=== PATIENT | male | born 2000 | race Caucasian/White ===

== ENCOUNTER 2022-06-09 22:43 | Inpatient (IN) | payer MEDICAID, OTHER ==
[~2022-06-09] VITALS: Ht 170.2 cm; Wt 86.3 kg
[2022-06-09] MEDS ORDERED: NALOXONE HCL 1 MG/ML 2ML VIAL ONE (22:49)
[2022-06-09] MEDS ORDERED: ONDANSETRON HCL 4MG/2ML INJ IV ONE (23:00)
[2022-06-09] MEDS ORDERED: NALOXONE HCL 1 MG/ML 2ML VIAL IV ONE ×2 (23:00)
[2022-06-09] MEDS ORDERED: SODIUM CHLORIDE 0.9% 1000ML BAG (SEPSIS BOLUS) IV ONE (23:00)
[2022-06-09] MEDS ORDERED: LEVETIRACETAM 500MG PREMIX 100 ML IV ONE (23:15)
[2022-06-09 23:17] LABS: BG BASE EXCESS -15.8 mmol/L (-2.0-2.0); BG CARBOXYHEMOGLOBIN 0.2 % (0.5-1.5); BG DEOXYHEMOGLOBIN 0.4 % (0.0-5.0); BG FRACTION INSPIRED OXYGEN 100; BG HCO3 ACT 12.9 mmol/L (22.0-26.0); BG METHEMOGLOBIN 0.3 % (0.0-1.5); BG OXYGEN SATURATION 99.6 % (92.0-98.5); BG OXYHEMOGLOBIN 99.1 % (94.0-97.0); BG PH 7.125 (7.350-7.450); BG PO2 361.6 mmHg (75.0-100.0); BG SAMPLE SITE RIGHT RADIAL; BG TOTAL HEMOGLOBIN 15.4 g/dL (12.0-18.0); BG VENT MODE MASK - NRB
[2022-06-09 23:25] LABS: CHLORIDE 95 mEq/L (98-107)
[2022-06-09 23:37] LABS: BETA HYDROXYBUTYRATE 0.2 mMol/L (0.0-0.3); ETHANOL BLOOD < 10 mg/dL
[2022-06-09 23:40] LABS: BASOPHILS % 0.4 % (0.0-2.0); EOSINOPHILS % 0.6 % (0.0-5.0); LYMPHOCYTES % 40.8 % (20.0-50.0); MEAN CORPUSCULAR HEMOGLOBIN 30.9 pg (28.0-32.0); MEAN CORPUSCULAR VOLUME 97.2 fL (80.0-94.0); MEAN PLATELET VOLUME 8.3 fl (7.4-10.4); MONOCYTES % 4.5 % (2.0-8.0); NEUTROPHILS % 53.7 % (40.0-76.0); PLATELET 237 x1000/uL (130-400); RED BLOOD CELL COUNT 4.53 mill/uL (4.7-6.1); RED CELL DISTRIBUTION WIDTH 13.3 % (11.6-14.6)
[2022-06-09 23:54] LABS: CLARITY URINE CLEAR (CLEAR); COLOR URINE YELLOW (YELLOW); KETONES URINE NEGATIVE (NEGATIVE); LEUKOCYTE ESTERASE URINE NEGATIVE (NEGATIVE); NITRITE URINE NEGATIVE (NEGATIVE); OCCULT BLOOD URINE NEGATIVE (NEGATIVE); PH URINE 7.5 (4.5-8.0); PROTEIN URINE NEGATIVE (NEGATIVE); SPECIFIC GRAVITY URINE 1.014 (1.005-1.030); UROBILINOGEN URINE 0.2 E.U./dL (0.2-1.0)
[2022-06-10] MEDS ORDERED: VANCOMYCIN 1G PREMIX 200 ML IV ONE (00:15)
[2022-06-10] MEDS ORDERED: PIPERACILLIN/TAZ 3.375G PREMIX 50 ML IV ONE (00:15)
[2022-06-10 00:58] LABS: *AMPHETAMINES SCREEN URINE NEGATIVE (NEGATIVE); *BARBITURATES SCREEN URINE NEGATIVE (NEGATIVE); *BENZODIAZEPINES SCREEN URINE NEGATIVE (NEGATIVE); *COCAINE SCREEN URINE PRESUMTIVE POSITIVE (NEGATIVE); CANNABINOID URINE SCREEN NEGATIVE (NEGATIVE); METHADONE URINE SCREEN NEGATIVE (NEGATIVE); OPIATES URINE SCREEN NEGATIVE (NEGATIVE); PHENCYCLIDINE URINE SCREEN NEGATIVE (NEGATIVE)
[2022-06-10] MEDS ORDERED: ONDANSETRON HCL 4MG/2ML INJ IV ONE (01:15)
[2022-06-10] MEDS ORDERED: KCL 20MEQ/100ML PREMIX 100 ML IV ONE (01:15)
[2022-06-10] MEDS ORDERED: POTASSIUM CHLORIDE 20MEQ TABLET SR PO ONE (01:15)
[2022-06-10 01:46] LABS: CHLORIDE 103 mEq/L (98-107)
[2022-06-10 01:51] LABS: PHOSPHORUS 1.4 mg/dL (2.5-4.9)
[2022-06-10 04:27] LABS: CHLORIDE 104 mEq/L (98-107)
[2022-06-10] MEDS ORDERED: DEXTROSE 50% WATER 50ML SYRINGE IV PRN (05:30)
[2022-06-10 06:03] LABS: HEMATOCRIT. 40.7 % (42.0-52.0); HEMOGLOBIN. 13.9 g/dL (14.0-18.0); MEAN CORPUSCULAR HEMOGLOBIN 31.1 pg (28.0-32.0); MEAN CORPUSCULAR VOLUME 91.1 fL (80.0-94.0); MEAN PLATELET VOLUME 7.7 fl (7.4-10.4); PLATELET 208 x1000/uL (130-400); RED BLOOD CELL COUNT 4.47 mill/uL (4.7-6.1); RED CELL DISTRIBUTION WIDTH 12.6 % (11.6-14.6)
[2022-06-10 06:05] LABS: CHLORIDE 102 mEq/L (98-107)
[2022-06-10 06:11] LABS: PHOSPHORUS 2.2 mg/dL (2.5-4.9)
[2022-06-10 08:24] VITALS: BP 123/63
[2022-06-10] MEDS: BLOOD SUGAR DIAGNOSTIC STRIP TEST SCH ×4 (08:28→20:38)
[2022-06-10] MEDS: INSULIN LISPRO (MEDIUM DOSE) 100 UNITS/ML SUBCUT SCH ×4 (08:28→20:37)
[2022-06-10] MEDS: ASPIRIN 81MG TABLET PO SCH (09:11)
[2022-06-10 10:11] LABS: PLATELET ESTIMATE NORMAL
[2022-06-10 10:14] VITALS: BP 123/63
[2022-06-10 10:26] LABS: CHLORIDE 105 mEq/L (98-107)
[2022-06-10 10:34] LABS: PHOSPHORUS 3.4 mg/dL (2.5-4.9)
[2022-06-10] MEDS: SODIUM CHLORIDE 0.9% 1,000 ML IV SCH ×2 (11:58→21:24)
[2022-06-10] MEDS: THIAMINE HCL 100MG TABLET PO SCH (11:58)
[2022-06-10 12:00] VITALS: BP 119/75
[2022-06-10] MEDS ORDERED: CEFTRIAXONE 1,000 MG in DEXTROSE 5% WATER 50 ML IV SCH (13:00)
[2022-06-10 13:56] LABS: CREATINE KINASE 257 IU/L (39-308)
[2022-06-10 16:20] VITALS: BP 106/63
[2022-06-10 20:00] VITALS: BP 123/76
[2022-06-10] MEDS ORDERED: AZITHROMYCIN 500 MG in DEXT 5% WATER 250 ML IV SCH (22:30)
[2022-06-10] MEDS: PIPERACILLIN/TAZOBACTAM 3.375 G in DEXTROSE 5% WATER 50 ML IV SCH (23:16)
[2022-06-11] VITALS: BP 107/62
[2022-06-11] MEDS: SODIUM CHLORIDE 0.9% 1,000 ML IV SCH ×3 (03:30→22:46)
[2022-06-11 04:00] VITALS: BP 101/50
[2022-06-11] MEDS: INSULIN LISPRO (MEDIUM DOSE) 100 UNITS/ML SUBCUT SCH ×4 (05:26→21:00)
[2022-06-11] MEDS: BLOOD SUGAR DIAGNOSTIC STRIP TEST SCH ×4 (05:26→21:33)
[2022-06-11] MEDS: PIPERACILLIN/TAZOBACTAM 3.375 G in DEXTROSE 5% WATER 50 ML IV SCH ×3 (05:27→22:46)
[2022-06-11 06:34] LABS: BASOPHILS % 0.4 % (0.0-2.0); EOSINOPHILS % 0.8 % (0.0-5.0); HEMATOCRIT. 43.5 % (42.0-52.0); HEMOGLOBIN. 14.8 g/dL (14.0-18.0); LYMPHOCYTES % 19.2 % (20.0-50.0); MEAN CORPUSCULAR HEMOGLOBIN 31.2 pg (28.0-32.0); MEAN CORPUSCULAR VOLUME 91.5 fL (80.0-94.0); MEAN PLATELET VOLUME 8.3 fl (7.4-10.4); MONOCYTES % 7.3 % (2.0-8.0); NEUTROPHILS % 72.3 % (40.0-76.0); PLATELET 195 x1000/uL (130-400); RED BLOOD CELL COUNT 4.75 mill/uL (4.7-6.1); RED CELL DISTRIBUTION WIDTH 12.9 % (11.6-14.6)
[2022-06-11 06:47] LABS: CHLORIDE 105 mEq/L (98-107)
[2022-06-11 08:00] VITALS: BP 112/68
[2022-06-11] MEDS ORDERED: ASPIRIN 81MG TABLET PO SCH (09:00)
[2022-06-11 09:27] LABS: BG BASE EXCESS -0.5 mmol/L (-2.0-2.0); BG CARBOXYHEMOGLOBIN 0.5 % (0.5-1.5); BG DEOXYHEMOGLOBIN 4.5 % (0.0-5.0); BG FRACTION INSPIRED OXYGEN 21; BG HCO3 ACT 24.8 mmol/L (22.0-26.0); BG METHEMOGLOBIN 0.3 % (0.0-1.5); BG OXYGEN SATURATION 95.5 % (92.0-98.5); BG OXYHEMOGLOBIN 94.7 % (94.0-97.0); BG PCO2 42.8 mmHg (35.0-45.0); BG PO2 75.6 mmHg (75.0-100.0); BG SAMPLE SITE LEFT RADIAL; BG TOTAL HEMOGLOBIN 15.6 g/dL (12.0-18.0); BG TOTAL RESPIRATORY RATE 20 b/min; BG VENT MODE ROOM AIR
[2022-06-11] MEDS: THIAMINE HCL 100MG TABLET PO SCH (09:54)
[2022-06-11] MEDS: ASPIRIN 81MG TABLET PO SCH (09:54)
[2022-06-11] MEDS ORDERED: LACTULOSE 20G/30ML UDC PO NR (11:15)
[2022-06-11 12:00] VITALS: BP 115/70
[2022-06-11 16:00] VITALS: BP 120/69
[2022-06-11 20:00] VITALS: BP 111/69
[2022-06-12] VITALS: BP 105/61
[2022-06-12] MEDS: SODIUM CHLORIDE 0.9% 1,000 ML IV SCH ×2 (03:35→11:30)
[2022-06-12 04:00] VITALS: BP 103/56
[2022-06-12] MEDS: PIPERACILLIN/TAZOBACTAM 3.375 G in DEXTROSE 5% WATER 50 ML IV SCH ×2 (06:12→14:00)
[2022-06-12] MEDS: BLOOD SUGAR DIAGNOSTIC STRIP TEST SCH ×2 (06:12→11:40)
[2022-06-12] MEDS: INSULIN LISPRO (MEDIUM DOSE) 100 UNITS/ML SUBCUT SCH ×2 (06:13→11:40)
[2022-06-12 07:44] LABS: BASOPHILS % 0.8 % (0.0-2.0); EOSINOPHILS % 1.5 % (0.0-5.0); HEMATOCRIT. 44.1 % (42.0-52.0); HEMOGLOBIN. 15.3 g/dL (14.0-18.0); LYMPHOCYTES % 28.2 % (20.0-50.0); MEAN CORPUSCULAR HEMOGLOBIN 31.6 pg (28.0-32.0); MEAN PLATELET VOLUME 7.6 fl (7.4-10.4); MONOCYTES % 11.2 % (2.0-8.0); NEUTROPHILS % 58.3 % (40.0-76.0); PLATELET 201 x1000/uL (130-400); RED BLOOD CELL COUNT 4.84 mill/uL (4.7-6.1); RED CELL DISTRIBUTION WIDTH 12.8 % (11.6-14.6)
[2022-06-12 08:00] VITALS: BP 105/65
[2022-06-12 08:04] LABS: CHLORIDE 103 mEq/L (98-107)
[2022-06-12] MEDS: ASPIRIN 81MG TABLET PO SCH (09:20)
[2022-06-12] MEDS: THIAMINE HCL 100MG TABLET PO SCH (09:20)
[2022-06-12 12:00] VITALS: BP 98/61
[2022-06-12] MEDS ORDERED: LEVO-65 MT (13:11)
== END 2022-06-12 14:43 | disposition left against medical advice (07) | DRG 812 ==
LOC: EDBD 22:43 → ER 22:43 → 7EST 06-10 02:40 → ENRESERV 06-10 05:07
PROVIDERS: ADMIT Internal Medicine; ATTEND Internal Medicine
PROC: 4A00X4Z Measurement of Central Nervous Electrical Activity, External Approach (ICD-10-PCS; principal; 2022-06-12)
DX: T40.411A Poisoning by fentanyl or fentanyl analogs, accidental (unintentional), initial encounter (principal); J96.90 Respiratory failure, unspecified, unspecified whether with hypoxia or hypercapnia; J69.0 Pneumonitis due to inhalation of food and vomit; I21.4 Non-ST elevation (NSTEMI) myocardial infarction; N17.9 Acute kidney failure, unspecified; G92.8 Other toxic encephalopathy; Z20.822 Contact with and (suspected) exposure to COVID-19; T40.5X1A Poisoning by cocaine, accidental (unintentional), initial encounter; F19.10 Other psychoactive substance abuse, uncomplicated; F10.20 Alcohol dependence, uncomplicated; E11.65 Type 2 diabetes mellitus with hyperglycemia; R74.01 Elevation of levels of liver transaminase levels; F17.210 Nicotine dependence, cigarettes, uncomplicated; F22 Delusional disorders; R45.850 Homicidal ideations; Z53.29 Procedure and treatment not carried out because of patient's decision for other reasons; Z79.4 Long term (current) use of insulin; Y92.89 Other specified places as the place of occurrence of the external cause; R65.10 Systemic inflammatory response syndrome (SIRS) of non-infectious origin without acute organ dysfunction
CPT/HCPCS: 36415; 36600; 71045; 80048; 80053; 80076; 80305; 80307; 80320; 80329; 81003; 82010; 82248; 82375; 82550; 82805; 82962; 83036; 83605; 83735; 83880; 84100; 84145; 84484; 85025; 87077; 87426; 93005; 93306; 95816; 99291; C9803; J0456; J0696; J1953; J2310; J2405; J2543; J3370; J3480; J7030; J7060; G0480